=== PATIENT | female | born 1970 | race Caucasian/White ===

== ENCOUNTER 2018-12-02 10:07 | Day surgery (SDC) | payer OTHER ==
[~2018-12-02 10:07] MED LIST: FENTANYL CITR 100 MCG/2 ML ONE; LIDOCAINE 2% MPF 5 ML VIAL ONE; MIDAZOLAM HCL 2 MG/2 ML INJ ONE; PROPOFOL 200 MG/20 ML VIAL IV ONE; ROCURONIUM 50 MG/5 ML VIAL IV ONE
--- OUTSIDE RECORDS SUMMARY | 2018-12-02 10:11 | XMS REPORT | Clinical Summary ---
:1970 Author Organization [facility] Address [address] [place] [address] Care Team Providers Name Role Phone Toni Phelps MD Primary Care Provider Allergies No Known Allergies Medications Medication Sig Dispensed Refills Start Date End Date Status omeprazole (PriLOSEC) TAKE ONE (1) 1 06/19/2017 Active 40 MG capsule CAPSULE(S) BY MOUTH EVERY MORNING 30 MINUTES BEFORE BREAKFAST. pravastatin TAKE ONE (1) 0 06/27/2017 Active (PRAVACHOL) 80 MG TABLET(S) BY MOUTH tablet ONCE A DAY. nightly Active Problems Problem Noted Date Sepsis 09/18/2017 Ileostomy status 09/13/2017 Dehydration 07/31/2017 Sigmoid stricture 07/25/2017 Family History Medical History Relation Name Comments Deep vein thrombosis Brother Pulmonary embolism Brother Diabetes Father Heart disease Father Breast cancer Mother Cancer Mother Diabetes Mother Hypertension Sister Stroke Sister Relation Name Status Comments Brother Alive Father from GI bleeding Mother Sister Alive Social History Tobacco Use Types Packs/Day Years Used Date Never Smoker Smokeless Tobacco: Never Used Tobacco Cessation: Counseling Given: No Alcohol Use Drinks/Week oz/Week Comments Yes occasional social weekends Sex Assigned at Date Recorded Not on file Job Start Date Occupation Industry Not on file Not on file Not on file Travel History Travel Start Travel End No recent travel history available. Last Filed Vital Signs Not on file Plan of Treatment Health Maintenance Due Date Last Done Comments INFLUENZA VACCINE 01/30/2019 Implants Implanted Type Area Tobacco Feeder Catcher Device Shelf Model / Identifier Expiration Serial / Date Lot Drain Wnd Chnl 19fr 1/4in Rnd Hbls Fl-Flut W/ n Trocar - [id number] Surgical N/A: N/A [employer] / Implanted: 09/18/2017 (Quantity not on file) Implants; [employer] / Expanders; DW[employer]NE Extenders; Surgical Wires Results Not on fileafter 12/01/2017 Advance Directives Patient has advance care planning documents on file. For more information, please contact:Uriel Gustafson[address] [place] [address]
--- NOTE | 2018-12-02 10:22 | RAD REPORT ---
EXAM DESCRIPTION: Kelvin Garza (2 Views)12/02/2018 10:05 am CLINICAL HISTORY: Abdominal pain/preop for cholecystectomy COMPARISON: 2017 FINDINGS: The lungs appear clear of acute infiltrate. The heart is normal size IMPRESSION: No acute abnormalities displayed
[2018-12-02 10:26] LABS: Absolute Lymphocytes (CBC) 1.8 K/uL (0.7-4.9); Absolute Monocytes 0.3 K/uL (0.1-1.3); Absolute Neutrophil 2.3 K/uL (1.8-8.0); Basophils % 0.5 % (0-1.3); Eosinophils % 1.5 % (0-4.4); Lymphocytes % 39.4 % (15.3-44.8); MPV 8.4 fL (7.6-11.3); Monocytes % 7.5 % (3.3-12.3); RBC Red Blood Cell Count 4.18 M/uL (3.86-4.86)
[2018-12-02] MEDS ORDERED: Ringers Lactate 1,000 ML IV ONE (10:31)
[2018-12-02] MEDS ORDERED: PROPOFOL 200 MG/20 ML VIAL IV ONE ×2 (10:55→11:23)
[2018-12-02] MEDS ORDERED: LIDOCAINE 1% MPF 5 ML VIAL ONE (10:55)
[2018-12-02] MEDS ORDERED: FENTANYL CITR 100 MCG/2 ML ONE (10:55)
[2018-12-02] MEDS ORDERED: MIDAZOLAM HCL 2 MG/2 ML INJ ONE (10:55)
[2018-12-02] MEDS ORDERED: ROCURONIUM 50 MG/5 ML VIAL IV ONE (10:55)
[2018-12-02 11:01] LABS: Albumin 3.7 g/dL (3.4-5.0); Bilirubin Direct 0.1 mg/dL (0-0.2); Bilirubin Total 0.6 mg/dL (0.2-1.0); Potassium 4.2 mmol/L (3.5-5.1); Protein, Total 7.1 g/dL (6.4-8.2)
[2018-12-02] MEDS: CEFOXITIN/SWI 1gm 1 GM/10 ML SYR ONE ×2 (11:46→11:55)
--- NOTE | 2018-12-02 12:16 | EKG ---
Test Date: 2018-12-02 Test Time: 09:50:09 Installer Soft Top: GLORIA MEASUREMENT RESULTS: Intervals: Rate: 62 SC: 120 QRSD: 88 QT: 396 QTc: 401 [place]: P: 72 SC: 120 QRS: 78 T: 56 INTERPRETIVE STATEMENTS: Normal sinus rhythm Normal ECG Compared to ECG 08/15/2016 16:33:35 No significant changes Electronically Signed On 12-02-18 12:15:45 CDT by Cirilo Rivear
[2018-12-02] MEDS ORDERED: KETOROLAC 30 MG/ML INJ ONE (12:41)
[2018-12-02] MEDS ORDERED: GLYCOPYRROLATE 0.2 MG/ML SYR ONE (12:41)
[2018-12-02] MEDS ORDERED: NEOSTIGMINE 1 MG/ML -10 ML VIAL ONE (12:41)
[2018-12-02] MEDS ORDERED: ONDANSETRON 4 MG/2 ML VIAL ONE ×2 (12:41→14:02)
--- NOTE | 2018-12-02 12:41 | P.BOP ---
Preoperative diagnosis: acute cholecystitis, symptomatic cholelithiasis Postoperative diagnosis: same Primary procedure: Laparoscopic cholecytectomy Estimated blood loss: <10c Specimen: gb Findings: as above Anesthesia: General Complications: None Transferred to: Recovery Room Condition: Good
[2018-12-02] MEDS: HYDROMORPHONE HCL 1 MG/ML INJ ONE ×2 (12:55→13:00)
[2018-12-02] MEDS ORDERED: ONDANSETRON 4 MG/2 ML VIAL IV ONE (13:50)
[2018-12-02 14:52] VITALS: BP 112/79; TEMP 97.2; O2SAT 99
== END 2018-12-02 14:18 | disposition home or self-care (01) ==
LOC: OR 10:07
PROVIDERS: ATTEND Surgery
PROC: 0FT44ZZ Resection of Gallbladder, Percutaneous Endoscopic Approach (ICD-10-PCS; principal; 2018-12-02 11:00)
DX: K80.00 Calculus of gallbladder with acute cholecystitis without obstruction (principal); Z85.41 Personal history of malignant neoplasm of cervix uteri; Z90.49 Acquired absence of other specified parts of digestive tract; Z80.3 Family history of malignant neoplasm of breast; Z83.3 Family history of diabetes mellitus; Z82.3 Family history of stroke; Z82.49 Family history of ischemic heart disease and other diseases of the circulatory system
CPT/HCPCS: 36415; 71046; 80048; 80076; 82150; 83690; 85025; 88304; 93005; J1170; J2250; J2405; J2704; J2710; J3010